=== PATIENT | female | born 1980 | race African-American/Black ===

== ENCOUNTER 2018-04-20 04:29 | Emergency (ER) | payer OTHER ==
[2018-04-20 05:54] VITALS: BMI 24.1
[2018-04-20] MEDS ORDERED: KETOROLAC TROMETHAMINE 60 MG/2 ML VIAL IM ONE (07:26)
[2018-04-20] MEDS ORDERED: KETOROLAC TROMETHAMINE 60 MG/2 ML VIAL ONE (08:08)
--- NOTE | 2018-04-20 08:26 | PDOC ---
History of Present Illness - General Chief Complaint: Back Pain Stated Complaint: BACK PAIN Time Seen by Provider: 04/20/18 07:18 History Source: Patient Exam Limitations: No Limitations - History of Present Illness Initial Comments: 04/20/18 07:27 Pt is a 37 y/o F with no PMH who presents to the ED with b/l lower back pain since 12am this morning. Pt works as a [employer] and states she slipped and fell on the wet floor at work. She states that she has not taken any medication for her pain. Denies numbness and tingling to the extremities, weakness to the extremities, fever, saddle anesthesia and bladder/bowel incontinence. Past History - Travel Traveled outside of the country in the last 30 days: No Close contact w/someone who was outside of country & ill: No - Past Medical History Allergies/Adverse Reactions: Allergies Allergy/AdvReac Type Severity Reaction Status Date / Time No Known Allergies Allergy Verified 04/20/18 05:54 Home Medications: Ambulatory Orders Cyclobenzaprine HCl [Flexeril -] 10 mg PO HS #10 tablet 04/20/18 Ibuprofen 600 mg PO Q6H #30 tablet 04/20/18 - Suicide/Smoking/Psychosocial Hx Smoking History: Never smoked Have you smoked in the past 12 months: No Information on smoking cessation initiated: No Hx Alcohol Use: No Drug/Substance Use Hx: No Review of Systems - Review of Systems Able to Perform ROS?: Yes Comments:: 04/20/18 07:27 CONSTITUTIONAL: Absent: fever, chills, diaphoresis, generalized weakness, malaise, loss of appetite GASTROINTESTINAL: Absent: abdominal pain, abdominal distension, nausea, vomiting, diarrhea, constipation, melena, hematochezia GENITOURINARY: Absent: dysuria, frequency, urgency, hesitancy, hematuria, flank pain, genital pain MUSCULOSKELETAL: Present: low back pain b/l Absent: arthralgia, joint swelling SKIN: Absent: rash, itching, pallor NEUROLOGIC: Absent: headache, focal weakness or paresthesias, dizziness, unsteady gait, seizure, mental status changes, bladder or bowel incontinence PSYCHIATRIC: Absent: anxiety, depression, suicidal or homicidal ideation, hallucinations. Is the patient limited Maltese proficient: No *Physical Exam - Vital Signs Last Vital Signs Temp Pulse Resp BP Pulse Ox 98.7 F 64 18 123/79 6 L 04/20/18 04:49 04/20/18 04:49 04/20/18 04:49 04/20/18 04:49 04/20/18 04:49 - Physical Exam Comments: 04/20/18 07:27 GENERAL: Well developed, well nourished. Awake and alert. No acute distress. MUSCULOSKELETAL TTP of the b/l paraspinous muscles, L3-L5, with palpable knot consistent with muscle spasm. (-) straight leg raise b/l. Normal range of motion at all joints. No bony deformities or tenderness. No CVA tenderness. EXTREMITIES: No cyanosis. No clubbing. No edema. No calf tenderness. SKIN: Warm and dry. Normal capillary refill. No rashes. No jaundice. NEUROLOGICAL: Alert, awake, appropriate. Cranial nerves 2-12 intact. No deficits to light touch and temperature in face, upper extremities and lower extremities. No motor deficits in the in face, upper extremities and lower extremities. Normoreflexic in the upper and lower extremities. Normal speech. Toes are down- going bilaterally. Gait is normal without ataxia. PSYCHIATRIC: Cooperative. Good eye contact. Appropriate mood and affect. Moderate Sedation - Procedure Monitoring Vital Signs: Procedure Monitoring Vital Signs Temperature 98.7 F 04/20/18 04:49 Pulse Rate 64 04/20/18 04:49 Respiratory Rate 18 04/20/18 04:49 Blood Pressure 123/79 04/20/18 04:49 O2 Sat by Pulse Oximetry (%) 6 L 04/20/18 04:49 Medical Decision Making - Medical Decision Making 04/20/18 08:27 Pt is a 37 y/o F who presents to the ED for b/l lower back pain after a mechanical slip and fall this morning. -Pt with TTP of the b/l paraspinous muscles, L3-L5, with palpable knot consistent with muscle spasm. (-) straight leg raise b/l. -No fever. No saddle anesthesia or bladder/bowel incontinence. No CVA tenderness. -X-ray is negative for fracutre at this time. -Pt is neurologically intact on exam with no focal findings. -Toradol given with relief of symptoms -DC home. Ortho follow up given for if symptoms do not resolve. -I discussed the physical exam findings, ancillary test results and final diagnoses with the patient. I answered all of the patient's questions. The patient was satisfied with the care received and felt comfortable with the discharge plan and treatment plan. The Patient agrees to follow up with the primary care physician/specialist within 24-72 hours. Return precautions were given. *DC/Admit/Observation/Transfer Diagnosis at time of Disposition: Low back pain Qualifiers: Chronicity: acute Back pain laterality: bilateral Sciatica presence: without sciatica Qualified Code(s): M54.5 - Low back pain - Discharge Dispostion Disposition: HOME Condition at time of disposition: Fair Decision to Admit order: No - Prescriptions Prescriptions: Cyclobenzaprine HCl [Flexeril -] 10 mg PO HS #10 tablet Ibuprofen 600 mg PO Q6H #30 tablet - Referrals Referrals: Rivas Aviles MD [Primary Care Provider] - - Patient Instructions Printed Discharge Instructions: DI for Low Back Pain Additional Instructions: You have low back pain due to a muscle spasm. Please take ibuprofen 800 mg 3 times a day not to exceed 3000 mg a day. You were also prescribed Flexeril. Please take this medication every 8 hours for the first day. Then take the medication before you go to bed. Do not drive after taking this medication as it may make you sleepy. You may use warm compresses on your back to help with her symptoms. Please follow-up with your primary care doctor. If your symptoms do not resolve in 3-5 days, follow-up with orthopedics. A referral has been provided for you. Return to the emergency department if you have worsening back pain, bladder or bowel incontinence, numbness and tingling in her legs, changes in the way you walk, or any new or worsening symptoms. - Post Discharge Activity Forms/Work/School Notes: Back to Work
[2018-04-20 09:05] VITALS: BP 120/61; PULSE 67; TEMP 97.9
== END 2018-04-20 08:55 | disposition home or self-care (01) ==
LOC: JER 04:29
PROC: 3E0233Z Introduction of Anti-inflammatory into Muscle, Percutaneous Approach (ICD-10-PCS; principal; 2018-04-20)
DX: M54.5 Low back pain (principal)
CPT/HCPCS: 72100-TC-FY; 84703; 99283-25